=== PATIENT | female | born 1990 | race Caucasian/White ===

== ENCOUNTER 2020-10-10 16:38 | Emergency (ER) | payer OTHER, SELFPAY ==
[2020-10-10] VITALS (7 sets, daily range): BP systolic 158–175; BP diastolic 72–114; PULSE 63–97; RESP 14–20; TEMP 36.7–37.2; O2SAT 99–100
--- NOTE | 2020-10-10 17:01 | ECG_ITS ---
Measurements Intervals Concrete Rate: 64 P: 31 SD: 156 QRS: -1 QRSD: 77 T: 4 QT: 400 QTc: 414 Interpretive Statements SINUS RHYTHM BORDERLINE T WAVE ABNORMALITY- INFERIOR LEADS BORDERLINE ECG Electronically Signed On 10-11-2020 8:01:00 CDT by Kyrie Denny D.O.
[2020-10-10 18:01] LABS: Basophils Percent Auto 0.3 % (0.2-1.2); Eosinophils Absolute Auto 0.2 K/mm3 (0-0.3); Eosinophils Percent Auto 2.4 % (0-4.4); Hematocrit 34.9 % (37.0-47.0); Hemoglobin 11.7 g/dL (12.0-15.0); Immature Granulocyte Absolute 0.02 K/mm3 (0.00-0.031); Immature Granulocyte Percent A 0.3 % (0-0.5); Lymphocytes Absolute Auto 2.12 K/mm3 (0.9-3.2); Lymphocytes Percent Auto 27.2 % (18.3-44.2); Mean Corpuscular HGB Conc 33.5 g/dl (32-36); Mean Corpuscular Hemoglobin 29.4 pg (26-34); Mean Corpuscular Volume 87.7 fl (80-100); Monocytes Absolute Auto 0.5 K/mm3 (0.1-0.6); Neutrophils Percent Auto 63.8 % (45.5-73.1); Platelet Count Result 303 k/mm3 (150-375); Red Blood Count 3.98 M/mm3 (4.2-5.4); Red Cell Distribution Width 13.3 % (11.5-14.5); White Blood Count 7.8 K/mm3 (4.5-10.0)
[2020-10-10 18:10] LABS: Anion Gap 6 mmol/L (8-16); Blood Urea Nitrogen 14 mg/dL (7-17); Calcium 9.1 mg/dL (8.4-10.2); Carbon Dioxide 27 mmol/L (22-30); Chloride 104 mmol/L (98-107); Estimated CRCL calculation 82 ml/min; Estimated Glomerular Filt Rate > 60; Glucose 94 mg/dL (65-105); Potassium 3.8 mmol/L (3.4-5.0); Sodium 137 mmol/L (137-145)
[2020-10-10 19:51] LABS: Add Urine Microscopic? NO; Appearance Urine Clear (Clear); Bilirubin Urine Negative (Negative); Blood Urine Negative (Negative); Color Urine Straw (Yellow); Glucose Urine UA Negative (Negative); Ketones Urine Negative (Negative); Leukocyte Esterase Ur Negative LEU/UL (Negative); Nitrate Urine Negative (Negative); Protein Urine Negative (Negative); Specific Grav Ur 1.006 (1.001-1.035); Urobilinogen Urine Negative mg/dL (<2.0)
[2020-10-10] MEDS: KETOROLAC 30 MG/ML VIAL (*BKC) IV PUSH (19:52)
--- NOTE | 2020-10-10 20:32 | ED.HA ---
HPI - Headache General Chief Complaint: Headache Stated Complaint: htn Time Seen by Provider: 10/10/20 19:19 History of Present Illness HPI Narrative: Patient is a 30-year-old female who presents ER with headache and hypertension. 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 Because of her headache it was recommended she come to the ER to be evaluated. Patient does have history of hypertension and she takes 25 mg lisinopril. Headache is throbbing and frontal. No radiation. No change in vision or hearing. She denies nausea/vomiting/numbness/tingling. No trauma. She has history of headaches and this feels similar not particularly worrisome until her blood pressures were elevated. Related Data Allergies Allergy/AdvReac Type Severity Reaction Status Date / Time No Known Allergies Allergy Unverified 10/10/20 19:23 Review of Systems Review of Systems: All systems reviewed & are unremarkable except as noted in HPI and below Constitutional: Constitutional: Denies chills, Denies fever(s) and Denies weakness ENT: Denies nasal congestion and Denies sore throat Cardiovascular: Cardiovascular: Denies chest pain, Denies rapid heart rate and Denies radiating jaw, neck or arm pain Respiratory: Respiratory: Denies cough, Denies dyspnea and Denies wheezing Neurologic: Denies confusion, Reports headache(s), Denies focal weakness and Denies numbness PMFSH Past Medical History Medical History (Updated 10/10/20 @ 20:35 by Enzo Warner MD) Hypertension Surgical History Surgical History (Updated 10/10/20 @ 20:33 by Enzo Warner MD) No pertinent past surgical history Social History Social History (Updated 10/10/20 @ 20:33 by Enzo Warner MD) Smoking status: Never smoker Exam Narrative: Exam Narrative: GENERAL: Well-appearing, well-nourished, and in no acute distress. HEAD: Normocephalic, atraumatic. EYES: PERRL and EOMI. CHEST: Clear to auscultation. No respiratory distress. HEART: Regular rate and rhythm. Normal peripheral pulses. EXTREMITIES: Normal range of motion. No edema. NEURO: No focal deficits. Alert and oriented x3. PSYCH: Normal mood and affect. Course Course Emergency Course: Headache resolved with Toradol. Blood pressure normalized on its own. Follow-up with PCP as needed. Vital Signs Vital signs: Vital Signs Temperature 98.9 F 10/10/20 16:56 Pulse Rate 97 10/10/20 16:56 Respiratory Rate 20 10/10/20 16:56 Blood Pressure 175/114 H 10/10/20 16:56 Pulse Oximetry 100 10/10/20 16:56 Temperature 98.0 F 10/10/20 19:20 Pulse Rate 63 10/10/20 19:54 Respiratory Rate 14 10/10/20 19:54 Blood Pressure 164/86 H 10/10/20 19:21 Pulse Oximetry 100 10/10/20 19:21 MDM - Headache Lab Data Result diagrams: 10/10/20 17:05 10/10/20 17:05 Labs: Lab Results 10/10/20 10/10/20 10/10/20 Range/Units 17:05 17:05 19:39 WBC 7.8 (4.5-10.0) K/mm3 RBC 3.98 L (4.2-5.4) M/mm3 Hgb 11.7 L (12.0-15.0) g/dL Hct 34.9 L (37.0-47.0) % MCV 87.7 (80-100) fl MCH 29.4 (26-34) pg MCHC 33.5 (32-36) g/dl RDW 13.3 (11.5-14.5) % Plt Count 303 (150-375) k/mm3 MPV 9.0 (7.4-10.4) fl Immature Gran % (Auto) 0.3 (0-0.5) % Neut % (Auto) 63.8 (45.5-73.1) % Lymph % (Auto) 27.2 (18.3-44.2) % [place] % (Auto) 6.0 (2.6-8.5) % Eos % (Auto) 2.4 (0-4.4) % Baso % (Auto) 0.3 (0.2-1.2) % Lymph # (Auto) 2.12 (0.9-3.2) K/mm3 [place] # (Auto) 0.5 (0.1-0.6) K/mm3 Eos # (Auto) 0.2 (0-0.3) K/mm3 Baso # (Auto) 0.0 (0.0-0.1) K/mm3 Abs Immat Gran (auto) 0.02 (0.00-0.031) K/mm3 Absolute Neuts (auto) 5.0 (1.3-6.7) K/mm3 Absolute Nucleated RBC 0.0 (0.0-0.012) K/mm3 Nucleated RBC % 0.0 (0.0-0.2) % Sodium 137 (137-145) mmol/L Potassium 3.8 (3.4-5.0) mmol/L Chloride 104 (98-10
[2020-10-10] MEDS: amLODIPine BESYLATE 5 MG TABLET 10 MG PO (20:37)
== END 2020-10-10 20:47 | disposition home or self-care (01) ==
PROVIDERS: Emergency Medicine; Emergency Provider Emergency Medicine; PCP Nurse Practitioner Psychiatric/Mental Health
DX: R51.9 Headache, unspecified (principal); I10 Essential (primary) hypertension; R94.31 Abnormal electrocardiogram [ECG] [EKG]
CPT/HCPCS: 36415; 80048; 81003; 81025; 85025; 93005; 96374; 99284; A9270; J1885

== ENCOUNTER 2023-06-20 08:59 | Outpatient (RCR) | payer BC, MEDICAID, SELFPAY ==
[2023-06-20 10:40] LABS: Hematocrit 33.7 % (37.0-47.0); Hemoglobin 10.9 g/dL (12.0-15.0)
[2023-06-20 10:44] LABS: Glucose 1 Hour PP 50gm Dose 95 mg/dL
[2023-06-20 11:25] LABS: HIV 1/2 Ab P24 Ag Result Negative (Negative)
[2023-06-20] MEDS: RHO(D) IMMUNE GLOBULIN 300 MCG/2 ML SYRINGE IM (16:04)
== END 2023-09-18 23:59 | disposition home or self-care (01) ==
LOC: ANHLAB 08:59
PROVIDERS: Visit Provider Obstetrics & Gynecology
DX: Z11.4 Encounter for screening for human immunodeficiency virus [HIV] (principal); Z29.13 Encounter for prophylactic Rho(D) immune globulin; O36.0130 Maternal care for anti-D [Rh] antibodies, third trimester, not applicable or unspecified; Z3A.00 Weeks of gestation of pregnancy not specified
CPT/HCPCS: 36415; 82947; 85014; 85018; 85461; 86703; 86850; 86900; 86901; 90384; G0432; J2790

== ENCOUNTER 2023-07-11 12:25 | Outpatient (CLI) | payer BC, MEDICAID, SELFPAY ==
[2023-07-11 12:46] VITALS: BP 137/83; PULSE 87
[2023-07-11 13:01] VITALS: BP 143/91; PULSE 78
[2023-07-11 13:16] VITALS: BP 144/89; PULSE 78
[2023-07-11 13:28] LABS: Basophils Percent Auto 0.3 % (0.2-1.2); Eosinophils Absolute Auto 0.2 K/mm3 (0-0.3); Eosinophils Percent Auto 1.7 % (0-4.4); Hematocrit 34.1 % (37.0-47.0); Immature Granulocyte Absolute 0.11 K/mm3 (0.00-0.031); Lymphocytes Absolute Auto 1.46 K/mm3 (0.9-3.2); Lymphocytes Percent Auto 13.1 % (18.3-44.2); Mean Corpuscular HGB Conc 32.3 g/dl (32-36); Mean Corpuscular Hemoglobin 29.4 pg (26-34); Mean Corpuscular Volume 91.2 fl (80-100); Mean Platelet Volume 9.3 fl (7.4-10.4); Monocytes Absolute Auto 0.7 K/mm3 (0.1-0.6); Monocytes Percent Auto 6.2 % (2.6-8.5); Neutrophils Absolute Auto 8.7 K/mm3 (1.3-6.7); Neutrophils Percent Auto 77.7 % (45.5-73.1); Platelet Count Result 265 k/mm3 (150-375); Red Blood Count 3.74 M/mm3 (4.2-5.4); White Blood Count 11.2 K/mm3 (4.5-10.0)
[2023-07-11 13:31] VITALS: BP 126/79; PULSE 80
[2023-07-11 13:43] LABS: Alanine Aminotransferase 10 U/L (6-35); Albumin Level 3.5 g/dL (3.5-5.1); Alkaline Phosphatase 101 U/L (38-126); Anion Gap 9 mmol/L (8-16); Aspartate Amino Transferase 17 U/L (14-36); Bilirubin,Total 0.2 mg/dL (0.2-1.3); Blood Urea Nitrogen 5 mg/dL (7-17); Calcium 9.1 mg/dL (8.4-10.2); Carbon Dioxide 23 mmol/L (22-30); Chloride 105 mmol/L (98-107); Estimated Glomerular Filt Rate > 60; Glucose 87 mg/dL (65-110); Potassium 3.5 mmol/L (3.4-5.0); Sodium 137 mmol/L (137-145); Uric Acid 3.3 mg/dL (2.5-7.5)
[2023-07-11 13:46] VITALS: BP 124/80; PULSE 74
[2023-07-11 14:27] LABS: Creatinine Urine 175.3 mg/dL; Total Protein Urine Random 13 mg/dL; Ur Ttl Prot Creatinine Ratio 0.07 mg/mg (0-0.20)
--- NOTE | 2023-07-11 14:42 | PC.NURSE ---
Dr Vargas notified of lab results, BP and reactive tracing. OK to dc home.
[2023-07-11 14:45] VITALS: BP 137/83; PULSE 87
[2023-07-12 15:51] LABS: Appearance Urine Cloudy (Clear); Bacteria Urine 2+ /hpf; Bilirubin Urine Negative (Negative); Blood Urine Negative (Negative); Calcium Oxalate Crystals Urine Present /hpf; Color Urine Yellow (Yellow); Glucose Urine UA Negative (Negative); Ketones Urine Negative (Negative); Leukocyte Esterase Ur Trace LEU/UL (NEGATIVE); Nitrate Urine Negative (Negative); Non Pathogenic Casts 0-2; Protein Urine Negative (Negative); Specific Grav Ur 1.021 (1.001-1.035); Squamous Epithelial Cell Urine Many /hpf (Few); pH Urine 5.5 (5.0-9.0)
[2023-07-12 15:53] LABS: Add Urine Microscopic? YES
== END 2023-07-11 14:45 | disposition home or self-care (01) ==
LOC: ANHOBOP 12:29 → ANHLDR 12:30
PROVIDERS: PCP Nurse Practitioner Family; Visit Provider Obstetrics & Gynecology
DX: O13.9 Gestational [pregnancy-induced] hypertension without significant proteinuria, unspecified trimester (principal); Z3A.00 Weeks of gestation of pregnancy not specified
CPT/HCPCS: 36415; 59025; 80053; 81001; 82570; 84156; 84550; 85025; 87086; 99199

== ENCOUNTER 2023-08-28 05:07 | Outpatient (CLI) | payer BC, MEDICAID, SELFPAY ==
[2023-08-28] VITALS (19 sets, daily range): BP systolic 138–161; BP diastolic 98–107; PULSE 69–94; O2SAT 99–100; BMI 34.2
[2023-08-28 06:00] LABS: Basophils Percent Auto 0.4 % (0.2-1.2); Eosinophils Absolute Auto 0.1 K/mm3 (0-0.3); Eosinophils Percent Auto 1.3 % (0-4.4); Hematocrit 34.3 % (37.0-47.0); Hemoglobin 11.2 g/dL (12.0-15.0); Immature Granulocyte Absolute 0.06 K/mm3 (0.00-0.031); Immature Granulocyte Percent A 0.6 % (0-0.5); Lymphocytes Absolute Auto 1.86 K/mm3 (0.9-3.2); Lymphocytes Percent Auto 17.6 % (18.3-44.2); Mean Corpuscular HGB Conc 32.7 g/dl (32-36); Mean Corpuscular Hemoglobin 28.3 pg (26-34); Mean Corpuscular Volume 86.6 fl (80-100); Mean Platelet Volume 9.8 fl (7.4-10.4); Monocytes Absolute Auto 0.6 K/mm3 (0.1-0.6); Monocytes Percent Auto 5.6 % (2.6-8.5); Neutrophils Absolute Auto 7.9 K/mm3 (1.3-6.7); Neutrophils Percent Auto 74.5 % (45.5-73.1); Platelet Count Result 302 k/mm3 (150-375); Red Blood Count 3.96 M/mm3 (4.2-5.4); Red Cell Distribution Width 13.2 % (11.5-14.5); White Blood Count 10.6 K/mm3 (4.5-10.0)
--- NOTE | 2023-08-28 06:08 | PC.NURSE ---
Report given to Angelica Huffman RN.
[2023-08-28 06:09] LABS: Alanine Aminotransferase 10 U/L (6-35); Albumin Level 3.5 g/dL (3.5-5.1); Alkaline Phosphatase 139 U/L (38-126); Anion Gap 3 mmol/L (8-16); Appearance Urine Cloudy (Clear); Aspartate Amino Transferase 20 U/L (14-36); Bacteria Urine 4+ /hpf; Bilirubin Urine Negative (Negative); Bilirubin,Total 0.3 mg/dL (0.2-1.3); Blood Urea Nitrogen 6 mg/dL (7-17); Blood Urine Negative (Negative); Carbon Dioxide 23 mmol/L (22-30); Chloride 110 mmol/L (98-107); Color Urine Yellow (Yellow); Estimated CRCL calculation 104 ml/min; Estimated Glomerular Filt Rate > 60; Glucose 80 mg/dL (65-110); Glucose Urine UA Negative (Negative); Ketones Urine Negative (Negative); Leukocyte Esterase Ur 1+ LEU/UL (Negative); Need Manual Microscopic Reviewed; Nitrate Urine Negative (Negative); Potassium 3.7 mmol/L (3.4-5.0); Protein Urine Trace mg/dL (Negative); RBC Urine 0-2 /hpf (0-2); Sodium 136 mmol/L (137-145); Specific Grav Ur 1.019 (1.001-1.035); Squamous Epithelial Cell Urine Many /hpf (Few); Uric Acid 4.8 mg/dL (2.5-7.5); Urobilinogen Urine 0.2 mg/dL (<2.0); WBC Urine 21-50 /hpf; pH Urine 5.5 (5.0-9.0)
[2023-08-28 06:15] LABS: Add Urine Microscopic? YES
[2023-08-28 06:21] LABS: Creatinine Urine 197.4 mg/dL; Total Protein Urine Random 12 mg/dL; Ur Ttl Prot Creatinine Ratio 0.06 mg/mg (0-0.20)
--- NOTE | 2023-08-28 06:37 | PC.NURSE ---
Dr. Mckee updated with pt blood pressures and lab results. Dr. Mckee consulting Dr. Vargas due to the pt being his pt.
--- NOTE | 2023-08-28 07:08 | PC.NURSE ---
Dr. Vargas at the bedside discussing POC with the pt. MD would like to move up pt scheduled C/S. Pt declined C/S today. Pt okay with proceeding on Saturday with c/s. MD discussed signs to report. Discharge order received.
--- NOTE | 2023-08-28 07:29 | PM.IMHP ---
H&P: [facility] History of Present Illness Date/Time: 08/28/23 07:29 Chief Complaint: Elevated blood pressure Narrative: 32-year-old female with elevated blood pressures at home. She is a 37 week gestation mother with a history of preeclampsia she denies any headache, blurry vision, epigastric pain. She denies any sudden worsening of her swelling. Her face looks different today. She denies any contractions, loss of fluid, vaginal bleeding. She reports good movement. Review of Systems Review of Systems: All systems reviewed & are unremarkable except as noted in HPI and below Constitutional: Constitutional: Denies chills, Denies fatigue, Denies fever(s) and Denies weakness Eyes: Eyes: Denies blurry vision, Denies change in vision, Denies loss of peripheral vision, Denies loss of vision, Denies other visual disturbances and Denies eye pain ENT: Denies vertigo, Denies dizziness, Denies hearing loss, Denies mouth pain, Denies nasal obstruction, Denies neck mass and Denies neck pain Cardiovascular: Cardiovascular: Denies chest pain, Denies diaphoresis, Denies syncope, Denies leg edema and Denies dyspnea Respiratory: Respiratory: Denies chest congestion, Denies cough, Denies hemoptysis, Denies dyspnea and Denies wheezing Gastrointestinal: Gastrointestinal: Denies abdominal pain, Denies constipation, Denies diarrhea, Denies nausea and Denies vomiting Genitourinary: Genitourinary: Denies hematuria, Denies change in libido, Denies nocturia, Denies genital lesions, Denies flank pain and Denies urinary urgency Musculoskeletal: Musculoskeletal: Denies abnormal gait, Denies back pain, Denies myalgias, Denies arthralgias, Denies joint swelling, Denies muscle weakness and Denies neck pain Integumentary/Breasts: Skin/Breast: Denies swelling, Denies breast pain, Denies breast mass, Denies dry skin, Denies nipple discharge, Denies unusual bruising and Denies jaundice Neurologic: Denies Neuro-related abnormal movements, Denies Abnormal speech present, Denies abnormal gait, Denies behavioral changes, Denies confusion, Denies vertigo, Denies dizziness, Denies syncope, Denies loss of vision, Denies memory loss, Denies convulsions and Denies weakness Psychiatric: Psychiatric: Denies abnormal sleep pattern, Denies behavioral changes, Denies change in libido, Denies confusion, Denies depression, Denies anhedonia and Denies memory loss Endocrine: Endocrine: Reports no additional endocrine complaints, Denies change in libido and Denies fatigue Hematologic/Lymphatic: Hematologic/Lymphatic: Reports no additional hematologic/lymphatic complaints Allergic/Immunologic: Allergic/Immunologic: Reports no additional allergic/immunologic complaints and Denies wheezing PMFSH Past Medical History Medical History (Updated 08/28/23 @ 07:31 by Mj Vargas MD) Hypertension Surgical History Surgical History (Updated 10/10/20 @ 20:33 by Enzo Warner MD) No pertinent past surgical history Social History Social History (Updated 10/10/20 @ 20:33 by Enzo Warner MD) Smoking status: Never smoker Meds Home Medications and Allergies Allergies Allergy/AdvReac Type Severity Reaction Status Date / Time No Known Allergies Allergy Verified 08/28/23 06:05 Vital Signs Vital Signs - 24 hr 08/28/23 05:26 08/28/23 05:37 08/28/23 05:39 Pulse Rate 87 80 Blood Pressure 161/107 H Blood Pressure [Left Arm] 161/107 H Pulse Oximetry 100 08/28/23 05:42 08/28/23 05:56 08/28/23 06:00 Pulse Rate 85 84 Blood Pressure 147/107 H 148/103 H Blood Pressure [Left Arm] Pulse Oximetry 100 08/28/23 06:15 08/28/23 06:29 08/28/23 06:30 Pulse Rate 80 72 Blood Pressure 147/98 H 152/98 H Blood Pressure [Left Arm] Pulse Oximetry 100 08/28/23 06:34 08/28/23 06:39 08/28/23 06:44 Pulse Rate Blood Pressure Blood Pressure [Left Arm] Pulse Oximetry 100 100 100 08/28/23 06:45 08/28/23 06:49 08/28/23 06:50 Pul
== END 2023-08-28 07:27 | disposition home or self-care (01) ==
LOC: ANHOBOP 05:14 → ANHOBPP 05:22
PROVIDERS: PCP Nurse Practitioner Family; Visit Provider Obstetrics & Gynecology
DX: O13.9 Gestational [pregnancy-induced] hypertension without significant proteinuria, unspecified trimester (principal); Z3A.00 Weeks of gestation of pregnancy not specified
CPT/HCPCS: 36415; 80053; 81001; 82570; 84156; 84550; 85025; 87086; 99199

== ENCOUNTER 2023-08-30 05:29 | Inpatient (IN) | payer BC, MEDICAID, SELFPAY ==
[2023-08-30] VITALS (70 sets, daily range): BP systolic 100–188; BP diastolic 38–129; PULSE 58–224; RESP 13–18; TEMP 36.2–37.2; O2SAT 97–100; BMI 33.7
[2023-08-30 06:11] LABS: Basophils Percent Auto 0.2 % (0.2-1.2); Eosinophils Absolute Auto 0.1 K/mm3 (0-0.3); Eosinophils Percent Auto 1.3 % (0-4.4); Hematocrit 33.7 % (37.0-47.0); Hemoglobin 11.1 g/dL (12.0-15.0); Immature Granulocyte Absolute 0.07 K/mm3 (0.00-0.031); Immature Granulocyte Percent A 0.7 % (0-0.5); Lymphocytes Absolute Auto 1.77 K/mm3 (0.9-3.2); Lymphocytes Percent Auto 17.1 % (18.3-44.2); Mean Corpuscular HGB Conc 32.9 g/dl (32-36); Mean Corpuscular Hemoglobin 28.2 pg (26-34); Mean Corpuscular Volume 85.8 fl (80-100); Mean Platelet Volume 9.6 fl (7.4-10.4); Monocytes Absolute Auto 0.6 K/mm3 (0.1-0.6); Monocytes Percent Auto 5.9 % (2.6-8.5); Neutrophils Absolute Auto 7.8 K/mm3 (1.3-6.7); Neutrophils Percent Auto 74.8 % (45.5-73.1); Platelet Count Result 295 k/mm3 (150-375); Red Blood Count 3.93 M/mm3 (4.2-5.4); Red Cell Distribution Width 13.4 % (11.5-14.5); White Blood Count 10.4 K/mm3 (4.5-10.0)
[2023-08-30] MEDS: LACTATED RINGERS 1,000 ML 999 ML IV CONT (06:16)
[2023-08-30] MEDS: LABETALOL HCL INJ 100 MG/20 ML VIAL 20 MG IV PUSH (06:25)
--- NOTE | 2023-08-30 06:34 | LDADM ---
This patient, Sena Deleon, was admitted to Labor/Delivery/Recovery 120 on 08/30/23 at 05:29. Plans for c section, pain management and were discussed with patient. Patient/family oriented to hospital policies and general routines including ID bracelet, bed and alarms, visiting hours, pain management, procedures, bathroom and other care routines, personal items, smoking policy, room service/diet and guest tray routines, infant security routines, and visiting hours. Patient/Family are encouraged to report perceived risks to care and to ask questions if they do not understand what they are told or what they should do. See OBIX for further documentation.
[2023-08-30] MEDS: MAGNESIUM SULF 4 GM/WATER100ML 4 GM/100 ML BAG IVPB (06:40)
[2023-08-30 06:55] LABS: Alanine Aminotransferase 10 U/L (6-35); Albumin Level 3.2 g/dL (3.5-5.1); Alkaline Phosphatase 131 U/L (38-126); Anion Gap 4 mmol/L (8-16); Aspartate Amino Transferase 19 U/L (14-36); Bilirubin,Total 0.3 mg/dL (0.2-1.3); Blood Urea Nitrogen 5 mg/dL (7-17); Calcium 8.6 mg/dL (8.4-10.2); Carbon Dioxide 22 mmol/L (22-30); Chloride 107 mmol/L (98-107); Estimated CRCL calculation 119 ml/min; Estimated Glomerular Filt Rate > 60; Glucose 78 mg/dL (65-110); Potassium 3.2 mmol/L (3.4-5.0); Sodium 133 mmol/L (137-145); Uric Acid 4.3 mg/dL (2.5-7.5)
[2023-08-30] MEDS: MAGNESIUM SULF 20GM/WATER500ML 500 ML 50 MG IV CONT ×2 (07:14→17:55)
--- NOTE | 2023-08-30 07:14 | PM.IMHP ---
H&P: HPI History of Present Illness Date/Time: 08/30/23 07:14 Chief Complaint: Term Narrative: 32-year-old female multiparous term with preeclampsia and a previous who desires female sterilization. We have agreed to proceed with repeat delivery and bilateral salpingectomy. She understands the procedure. Has been explained to her in detail. She understands the risk. She understands that injuries may occur that result in hospitalization, more surgery, and severe illness. She understands risk of hemorrhage infection. She denies any nausea, vomiting, fever, chills. She denies any chest pain or shortness of breath Review of Systems Review of Systems: All systems reviewed & are unremarkable except as noted in HPI and below Constitutional: Constitutional: Denies chills, Denies fatigue, Denies fever(s) and Denies weakness Eyes: Eyes: Denies blurry vision, Denies change in vision, Denies loss of peripheral vision, Denies loss of vision, Denies other visual disturbances and Denies eye pain ENT: Denies vertigo, Denies dizziness, Denies hearing loss, Denies mouth pain, Denies nasal obstruction, Denies neck mass and Denies neck pain Cardiovascular: Cardiovascular: Denies chest pain, Denies diaphoresis, Denies syncope, Denies leg edema and Denies dyspnea Respiratory: Respiratory: Denies chest congestion, Denies cough, Denies hemoptysis, Denies dyspnea and Denies wheezing Gastrointestinal: Gastrointestinal: Denies abdominal pain, Denies constipation, Denies diarrhea, Denies nausea and Denies vomiting Genitourinary: Genitourinary: Denies hematuria, Denies change in libido, Denies nocturia, Denies genital lesions, Denies flank pain and Denies urinary urgency Musculoskeletal: Musculoskeletal: Denies abnormal gait, Denies back pain, Denies myalgias, Denies arthralgias, Denies joint swelling, Denies muscle weakness and Denies neck pain Integumentary/Breasts: Skin/Breast: Denies swelling, Denies breast pain, Denies breast mass, Denies dry skin, Denies nipple discharge, Denies unusual bruising and Denies jaundice Neurologic: Denies Neuro-related abnormal movements, Denies Abnormal speech present, Denies abnormal gait, Denies behavioral changes, Denies confusion, Denies vertigo, Denies dizziness, Denies syncope, Denies loss of vision, Denies memory loss, Denies convulsions and Denies weakness Psychiatric: Psychiatric: Denies abnormal sleep pattern, Denies behavioral changes, Denies change in libido, Denies confusion, Denies depression, Denies anhedonia and Denies memory loss Endocrine: Endocrine: Reports no additional endocrine complaints, Denies change in libido and Denies fatigue Hematologic/Lymphatic: Hematologic/Lymphatic: Reports no additional hematologic/lymphatic complaints Allergic/Immunologic: Allergic/Immunologic: Reports no additional allergic/immunologic complaints and Denies wheezing PMFSH Past Medical History Medical History (Updated 08/30/23 @ 07:23 by Mj Vargas MD) Hypertension Surgical History Surgical History (Updated 08/30/23 @ 07:23 by Mj Vargas MD) No pertinent past surgical history Family History Family History (Updated 08/30/23 @ 06:39 by Ceci Bowman RN) Mother Cerebrovascular accident Hypertension Grandparent Congestive heart failure Grandparent Diabetes mellitus Grandparent Diabetes mellitus Father Brain bleed Social History Social History (Updated 10/10/20 @ 20:33 by Enzo Warner MD) Smoking status: Never smoker Second hand tobacco smoke exposure: No Substance use: never Do You Feel Safe in your Home?: Yes Lack of Transportation: No Lack of Food: Never True Current Housing: I Have Housing Concerned About Future Housing: No Difficulty Paying Gas/Electric Bills: No Difficulty Paying for Meds: No Currently Unemployed: No Education: Bachelor's Degree Difficulty w/ Childcare or Family Care: No Spiritual care concerns:
[2023-08-30] MEDS: ONDANSETRON INJ 4 MG/2 ML VIAL IV PUSH (07:15)
[2023-08-30] MEDS: FAMOTIDINE 20 MG/2 ML VIAL IV PUSH (07:16)
--- NOTE | 2023-08-30 07:23 | WPDANESEPP ---
Anes - Eval Pre Procedure Procedure: Operation Date: 08/30/23 07:30 Proposed Procedures p Repeat Section with Bilateral Salpingectomy - RMaribel Vargas MD Date/Time: 08/30/23 07:23 Pre Op Diagnosis: prior csection, sterilization Patient Data Age: 32 Gender: F Height: 1.6 m Weight: 86.5 kg Last Vital Signs Pulse 87 08/30/23 07:11 Resp 18 08/30/23 06:40 BP 149/101 H 08/30/23 07:11 O2 Del Method Room Air 08/30/23 06:22 Allergies Allergy/AdvReac Type Severity Reaction Status Date / Time No Known Allergies Allergy Verified 08/28/23 06:05 Home Medications Medication Instructions Recorded Confirmed Type aspirin 81 mg capsule 81 mg PO DAILY 08/30/23 08/30/23 History ferrous sulfate 27 mg iron tablet 27 mg PO DAILY 08/30/23 08/30/23 History prenat.vits,nikhil,zvp-tigs-sxlbp 1 tablet PO DAILY 08/30/23 08/30/23 History Laboratory Tests 08/30/23 08/30/23 08/30/23 05:58 06:37 06:37 WBC 10.4 H K/mm3 (4.5-10.0) RBC 3.93 L M/mm3 (4.2-5.4) Hgb 11.1 L g/dL (12.0-15.0) Hct 33.7 L % (37.0-47.0) MCV 85.8 fl (80-100) MCH 28.2 pg (26-34) MCHC 32.9 g/dl (32-36) RDW 13.4 % (11.5-14.5) Plt Count 295 k/mm3 (150-375) MPV 9.6 fl (7.4-10.4) Immature Gran % (Auto) 0.7 H % (0-0.5) Neut % (Auto) 74.8 H % (45.5-73.1) Lymph % (Auto) 17.1 L % (18.3-44.2) Long % (Auto) 5.9 % (2.6-8.5) Eos % (Auto) 1.3 % (0-4.4) Baso % (Auto) 0.2 % (0.2-1.2) Lymph # (Auto) 1.77 K/mm3 (0.9-3.2) Long # (Auto) 0.6 K/mm3 (0.1-0.6) Eos # (Auto) 0.1 K/mm3 (0-0.3) Baso # (Auto) 0.0 K/mm3 (0.0-0.1) Abs Immat Gran (auto) 0.07 H K/mm3 (0.00-0.031) Absolute Neuts (auto) 7.8 H K/mm3 (1.3-6.7) Absolute Nucleated RBC 0.0 K/mm3 (0.0-0.012) Nucleated RBC % 0.0 % (0.0-0.2) Sodium 133 L mmol/L (137-145) Potassium 3.2 L mmol/L (3.4-5.0) Chloride 107 mmol/L (98-107) Carbon Dioxide 22 mmol/L (22-30) Anion Gap 4 L mmol/L (8-16) BUN 5 L mg/dL (7-17) Creatinine 0.60 L mg/dL (0.7-1.0) Estim Creat Clear Calc 119 ml/min Estimated GFR > 60 (59 - ) Glucose 78 mg/dL (65-110) Uric Acid 4.3 mg/dL Cancelled (2.5-7.5) Calcium 8.6 mg/dL (8.4-10.2) Total Bilirubin 0.3 mg/dL (0.2-1.3) AST 19 U/L (14-36) ALT 10 U/L (6-35) Alkaline Phosphatase 131 H U/L (38-126) Total Protein 6.0 L g/dL (6.3-8.2) Albumin 3.2 L g/dL (3.5-5.1) RPR Pending Blood Type O Negative Antibody Screen Positive Antibody Identification Pending Antigen Identification Pending CHONG, IgG Interpret Pending CHONG, Poly Interpret Pending CHONG, Complement Interp Pending Patient hx anesthesia problems: none Family hx anesthesia problems: none Results Review: All pre-operative results and documents have been reviewed as part of the pre-operative evaluation. [facility] Past Medical History Medical History Hypertension Surgical History Surgical History No pertinent past surgical history Family History Family History Mother Cerebrovascular accident Hypertension Grandparent Congestive heart failure Grandparent Diabetes mellitus Grandparent Diabetes mellitus Father Brain bleed Social History Social History Smoking status: Never smoker Second hand tobacco smoke exposure:
--- NOTE | 2023-08-30 07:31 | P.PNAN_ITS ---
Anes - Eval Final PreProcedure Day of Procedure 08/30/23 07:31 Patient weight: obese Heart: regular rate and rhythm Lungs: clear to auscultation Airway: Mallampati scale class II Neurological: alert and oriented Last oral intake: >/= 8 hours ASA classification: III Emergent: no Anesthetic plan: proceed Anesthesia type and monitoring: regional spinal and standard monitoring Results Review: All pre-operative results and documents have been reviewed as part of the pre- operative evaluation. Informed Consent: The patient's anesthetic plan and its attendant risks and benefits were discussed with the patient/family/POA. Questions were solicited and answers provided to the satisfaction of the patient/family/POA.
[2023-08-30] MEDS: ceFAZolin 2 GM/D5W 50 ML 2 GM/50 ML BAG IVPB (07:40)
--- NOTE | 2023-08-30 08:36 | W.PM.OBCSD ---
OB - Delivery Note Procedure Delivery date: 08/30/23 Pre-op diagnosis: Preeclampsia w severe features and Previous Delivery Post-op Diagnosis: Same Procedure Performed: Repeat Surgeon: Mj Vargas MD Anesthesia type: Spinal Description of Procedure/Findings: The patient was taken the operating room.? She was prepped and draped in dorsal supine position with a leftward tilt.? This was done after spinal anesthetic was applied.? A low-transverse skin incision was made and carried down till of the fascia with the knife.? The fascial incision was made with the knife.? The fascial incision was extended laterally with Prado scissors.? The fascia was tented upward superiorly and inferiorly the rectus muscles were dissected off bluntly.? The rectus muscles were the midline.? The preperitoneal fat and peritoneum were dissected open bluntly at the superior aspect of the rectus muscles.? The peritoneal incision was extended superior and inferior with good position of bladder.? The uterine incision was made with a scalpel down to the level of the amniotic cavity.? The amniotic cavity was entered bluntly.? The was delivered.? The cord was clamped and cut and the infant was handed off to waiting pediatric staff.? Cord bloods were obtained.? The placenta was removed manually.? The uterus was exteriorized.? The uterus was cleared of all clots, debris and membranes.? The uterus was closed in 0 Vicryl running lock fashion.? imbricating layer of 0 Vicryl was placed also. Each fallopian tube was grasped and raised with a Seymour.? With from the underlying venous structures.? The mesosalpinx between the tube and the rest the adnexa was cauterized and transected with LigaSure cautery.? It was performed from the distal tube near the ovary in a stepwise fashion towards the cornua.? The tube at the cornua was cauterized transected with LigaSure cautery.? This was performed in a bilateral fashion. The uterus was returned to the abdomen.? The gutters were cleared of all clots and debris.? The fascia was closed with 0 Vicryl running fashion.? The subcutaneous tissue was irrigated pinpoint bleeders were cauterized.? The skin was closed with subcuticular absorbable rashid.? The skin incision line was covered with glue.? The patient tolerated the procedure well.? She has taken recovery room in stable condition.? Sponge lap and needle counts were correct x2.? [place] [facility] Weeks of gestation at delivery: 37
[2023-08-30] MEDS: OXYTOCIN 30 UNITS/NS 500 ML 30 UNITS/500 ML BAG 125 UNITS IV CONT (09:10)
[2023-08-30] MEDS: LORATADINE 10 MG TABLET PO (09:12)
--- NOTE | 2023-08-30 11:05 | OBPPTRN ---
Patient transferred to post room #292 via stretcher. Support person present. Oriented to unit, room, information board, rooming in, admission packet and security measures. Patient verbalizes understanding.
[2023-08-30] MEDS: ACETAMINOPHEN 325 MG TABLET 650 MG PO ×2 (11:26→17:27)
[2023-08-30] MEDS: SIMETHICONE 80 MG TAB.CHEW PO ×2 (11:27→17:27)
[2023-08-30] MEDS: KETOROLAC 15 MG/ML VIAL (*BKC) IV PUSH ×2 (11:28→17:27)
--- NOTE | 2023-08-30 14:05 | PC.NURSE ---
[id number] Introductions were made, then consulted with patient to assess needs related to . Mother led the conversation her desire to want to breastfeed this time, the?experience so far with having only one feeding downstairs on the right breast, and experience with her first delivery at another hospital with it leading to pump and feed. Right nipple has a purple pinch like negin on the center of the nipple. Infant assessment there is visualized a tight lower frenulum. Encouraged understanding of the benefits of skin to skin (demonstrating unwrapping infant and placing upright on her chest), stimulating with massage touch, changing positions to encourage wakefulness, how to watch for early feeding cues, responsive feeding, feeding on demand (aiming for 8-12 times in 24 hours, about every 2-3 hours), milk production, building/maintaining a milk supply, duration of feeding, signs of adequate intake/output and how to record on the feeding sheet. Mother works well with her with encouragement and education. Infant is sleepy and reluctant to breastfeed or demonstrate feeding cues at this time, however; infant is jittery so RN suggested hand expressing for breast milk. Mother consented to learning how to hand express and demonstrated learning. was spoon fed 1/2 tsp of colostrum. Discussed with parents that infant's are typically sleepy and reluctant > 2 hours and < than 6 hours after delivery and if infant is not latching by 12-24 hours consider pumping versus hand expressing protecting the milk supply with frequent removal of milk. was placed [id number] on mothers chest/breast and covered with a blanket with no jittery visualized. Safe sleep education was given to the parents. Encouraged [id number] to encourage stabilizing blood sugar, keeping warm, and reducing stress encouraging milk production. Reviewed comfort measures of healing with a warm, wet washcloth to rinse breast, then leave open to air-dry, good handwashing when or touching the breast/nipples to prevent infection. Mother voiced understanding of skin to skin, stimulating with massage touch, responsive feedings, hand expressed colostrum, talking to to encourage if it has been 2 -2.5 hours since the start of the last , to call if does not latch, or if there is discomfort with . Resources used for education were facilitated with the visual educational handouts/ tool/mom and baby guide. Inpatient/outpatient resources provided with feeding sheet, name written on the communication board, and the mom/baby guide. Parents voiced understanding of information, demonstrated learning and will call if there is a request for assistance. Reported to the Primary RN.
[2023-08-30 15:27] LABS: Rapid Plasma Reagin Non-Reactive (NonReactive)
[2023-08-30] MEDS: DEXTROSE 5%/0.45% SOD CHL 1,000 ML 125 ML IV CONT (15:41)
[2023-08-30] MEDS: DOCUSATE SODIUM 100 MG CAPSULE PO (17:26)
[2023-08-30] MEDS: HYDROcodone/acetaminophen (*CRX) 5-325 MG TABLET 1 TAB PO (20:20)
[2023-08-31] VITALS (7 sets, daily range): BP systolic 124–156; BP diastolic 77–89; PULSE 64–89; RESP 16–18; TEMP 36.4–36.9; O2SAT 97–100
[2023-08-31] MEDS: ACETAMINOPHEN 325 MG TABLET 650 MG PO ×4 (00:04→20:16)
[2023-08-31] MEDS: KETOROLAC 15 MG/ML VIAL (*BKC) IV PUSH ×2 (00:04→06:24)
[2023-08-31] MEDS: MAGNESIUM SULF 20GM/WATER500ML 500 ML 50 MG IV CONT (03:59)
[2023-08-31] MEDS: DEXTROSE 5%/0.45% SOD CHL 1,000 ML 125 ML IV CONT (04:00)
[2023-08-31 05:12] LABS: Basophils Percent Auto 0.2 % (0.2-1.2); Eosinophils Absolute Auto 0.1 K/mm3 (0-0.3); Eosinophils Percent Auto 0.5 % (0-4.4); Hematocrit 25.8 % (37.0-47.0); Hemoglobin 8.2 g/dL (12.0-15.0); Immature Granulocyte Absolute 0.04 K/mm3 (0.00-0.031); Immature Granulocyte Percent A 0.4 % (0-0.5); Lymphocytes Absolute Auto 1.27 K/mm3 (0.9-3.2); Lymphocytes Percent Auto 11.7 % (18.3-44.2); Mean Corpuscular HGB Conc 31.8 g/dl (32-36); Mean Corpuscular Hemoglobin 28.2 pg (26-34); Mean Corpuscular Volume 88.7 fl (80-100); Mean Platelet Volume 10.1 fl (7.4-10.4); Monocytes Absolute Auto 0.5 K/mm3 (0.1-0.6); Monocytes Percent Auto 4.4 % (2.6-8.5); Neutrophils Percent Auto 82.8 % (45.5-73.1); Platelet Count Result 234 k/mm3 (150-375); Red Blood Count 2.91 M/mm3 (4.2-5.4); Red Cell Distribution Width 13.4 % (11.5-14.5); White Blood Count 10.9 K/mm3 (4.5-10.0)
--- NOTE | 2023-08-31 08:02 | P.PNOB_ITS ---
OB - PN: Subj Subjective Date/time seen: 08/31/23 08:02 Patient comments: no complaints, pain well controlled, tolerating diet and flatus present OB - PN: Obj Data Labs 08/31/23 04:20 08/30/23 06:37 Labs: Laboratory Results - last 24 hr 08/30/23 08/31/23 05:58 04:20 WBC 10.9 H RBC 2.91 L Hgb 8.2 L Hct 25.8 L MCV 88.7 MCH 28.2 MCHC 31.8 L RDW 13.4 Plt Count 234 MPV 10.1 Immature Gran % (Auto) 0.4 Neut % (Auto) 82.8 H Lymph % (Auto) 11.7 L [place] % (Auto) 4.4 Eos % (Auto) 0.5 Baso % (Auto) 0.2 Lymph # (Auto) 1.27 [place] # (Auto) 0.5 Eos # (Auto) 0.1 Baso # (Auto) 0.0 Abs Immat Gran (auto) 0.04 H Absolute Neuts (auto) 9.0 H Absolute Nucleated RBC 0.0 Nucleated RBC % 0.0 RPR Non-reactive Blood Type O Negative Antibody Screen TNP Screen Negative Baby's Blood Type A pos Baby's CHONG Positive Doses of RhIg Required 1 OB - PN A/P Assessment and Plan (1) Preeclampsia, severe: Code(s): O14.10 - Severe pre-eclampsia, unspecified trimester Status: Acute Plan day: 1 Comments: Post Op LTCS - no problems, routine recovery, severe pree, to d/c mag and observe, stable now Time Spent With Patient Time: Total time spent is greater than 50% in coordination of care (as documented) at patient's floor/unit and/or counseling patient: Exam Const: General: cooperative, healthy appearing, comfortable and no acute distress Resp: Auscultation: no crackles, no rales, no rhonchi and no wheezes Cardio: Rhythm: regular rhythm Heart sounds: no click and no murmurs GI: Inspection: non-distended Auscultation: normal bowel sounds Extrem: General: normal to inspection, no pedal edema and no calf tenderness
--- NOTE | 2023-08-31 08:41 | WPDANLDPN2 ---
Anes-Prog Note L&D Date/Time: 08/31/23 08:41 Comfortable throughout: section Neuraxial method: spinal Epidural/Spinal procedure site: clean & non-tender Neuro status: Neuro function grossly intact.on Mg, catheter in, leg function intact. Cardiovascular status: normal Respiratory status: normal Airway patency: baseline Mental status: baseline Post-Op hydration status: normal Vital Signs: Last Vital Signs Temp 36.8 C 08/31/23 06:30 Pulse 78 08/31/23 06:30 Resp 18 08/31/23 06:30 BP 132/77 08/31/23 06:30 Pulse Ox 100 08/31/23 06:30 O2 Del Method Room Air 08/31/23 06:30 Pain score (VAS): 2 I/O: Intake & Output 08/30/23 08/31/23 08/31/23 23:59 07:59 15:59 Intake Total 240 2050 368 Output Total 1500 1300 Balance -1260 750 368 Post-procedural complaints: none Patient feedback: Patient satisfied with anesthetic care.
--- NOTE | 2023-08-31 08:42 | WPDANLDNPN2 ---
Anes-Prog Note L&D-Neuraxial Date/Time: 08/31/23 08:42 Neuraxial medications: intrathecal PF morphine Opiod-related complaints: none Patient feedback: Patient satisfied with post-operative pain management.
[2023-08-31] MEDS: SIMETHICONE 80 MG TAB.CHEW PO ×3 (08:50→20:15)
[2023-08-31] MEDS: MULTIVIT/MIN/PREN/FOL AC/IRON TABLET 1 TAB PO (08:51)
[2023-08-31] MEDS: DOCUSATE SODIUM 100 MG CAPSULE PO ×2 (08:51→15:43)
[2023-08-31] MEDS: POLYSACCHARIDE IRON COMPLEX 150 MG CAPSULE PO ×2 (08:51→15:43)
[2023-08-31] MEDS: RHO(D) IMMUNE GLOBULIN 300 MCG/2 ML SYRINGE IM (12:48)
[2023-08-31] MEDS: IBUPROFEN 600 MG TABLET PO ×2 (12:51→20:15)
[2023-08-31] MEDS: HYDROcodone/acetaminophen (*CRX) 10-325 MG TABLET 1 TAB PO ×2 (12:52→15:43)
[2023-08-31] MEDS: LIDOCAINE 5% PATCH 1 PATCH TRANSDERM (20:13)
[2023-08-31] MEDS: LABETALOL HCL 100 MG TABLET 200 MG PO (20:18)
[2023-09-01] VITALS (8 sets, daily range): BP systolic 116–149; BP diastolic 70–93; PULSE 60–97; RESP 16–18; TEMP 36.6–37.6; O2SAT 97–100
[2023-09-01] MEDS: ACETAMINOPHEN 325 MG TABLET 650 MG PO ×4 (02:10→22:27)
[2023-09-01] MEDS: IBUPROFEN 600 MG TABLET PO ×4 (02:11→22:27)
[2023-09-01] MEDS: MULTIVIT/MIN/PREN/FOL AC/IRON TABLET 1 TAB PO (08:51)
[2023-09-01] MEDS: DOCUSATE SODIUM 100 MG CAPSULE PO ×2 (08:51→16:16)
[2023-09-01] MEDS: POLYSACCHARIDE IRON COMPLEX 150 MG CAPSULE PO ×2 (08:51→16:16)
[2023-09-01] MEDS: SIMETHICONE 80 MG TAB.CHEW PO ×3 (08:51→22:27)
[2023-09-01] MEDS: LABETALOL HCL 100 MG TABLET 200 MG PO ×2 (08:52→21:24)
--- NOTE | 2023-09-01 09:49 | PM.OBPNVD ---
OB - PN: Subj Subjective Date/time seen: 09/01/23 09:49 Patient comments: no complaints, pain well controlled, incisional pain, tolerating diet and flatus present OB - PN: Obj Data Labs 08/31/23 04:20 08/30/23 06:37 Labs: Laboratory Results - last 24 hr 08/31/23 04:20 Blood Type O Negative Antibody Screen TNP Screen Negative Baby's Blood Type A pos Baby's CHONG Positive Doses of RhIg Required 1 OB - PN A/P Plan day: 2 Plan: routine care Comments: POD#2 LTCS - no problems, improved pree with diuresis Time Spent With Patient Time: Total time spent is greater than 50% in coordination of care (as documented) at patient's floor/unit and/or counseling patient: Exam Const: General: comfortable, no acute distress and alert Resp: Effort & Inspection: normal respiratory effort Auscultation: no crackles, no rales and no rhonchi Cardio: Rate: regular rate Heart sounds: no click, no murmurs and no rubs GI: Inspection: non-distended Auscultation: normal bowel sounds Other: Incision - CDI Extrem: General: normal to inspection, no pedal edema and no calf tenderness
[2023-09-01] MEDS: LIDOCAINE 5% PATCH 1 PATCH TRANSDERM (21:23)
[2023-09-02] MEDS: IBUPROFEN 600 MG TABLET PO ×2 (04:17→10:12)
[2023-09-02] MEDS: ACETAMINOPHEN 325 MG TABLET 650 MG PO ×2 (04:17→10:12)
[2023-09-02 04:20] VITALS: BP 137/89; PULSE 71; RESP 16; TEMP 37
[2023-09-02 08:45] VITALS: BP 140/90; PULSE 77; RESP 16; TEMP 36.4; O2SAT 98
[2023-09-02 08:46] VITALS: PULSE 77
[2023-09-02] MEDS: LABETALOL HCL 100 MG TABLET 200 MG PO (08:46)
[2023-09-02] MEDS: SIMETHICONE 80 MG TAB.CHEW PO (08:46)
[2023-09-02] MEDS: MULTIVIT/MIN/PREN/FOL AC/IRON TABLET 1 TAB PO (08:46)
[2023-09-02] MEDS: POLYSACCHARIDE IRON COMPLEX 150 MG CAPSULE PO (08:46)
[2023-09-02] MEDS: DOCUSATE SODIUM 100 MG CAPSULE PO (08:46)
--- NOTE | 2023-09-02 09:43 | PC.NURSE ---
Patient viewed the discharge video Mother & Baby Care, The First Two Weeks . Patient was given the opportunity and encouraged to ask questions. Patient verbalized understanding of information shared and has been given the mother/baby guide for home reference.
--- NOTE | 2023-09-02 11:10 | PC.NURSE ---
[id number] Consulted with mother concerning needs and she shared her ability to independently latch infant optimally without pain. Infant is swaddled resting in mother's arms after bottle feeding at 0900. Mother is feeding appropriately for growth of infant and understands stimulating infant to eat if needed. Mother states she has attempted to latch infant to the breast, parents have visualized swallowing, and mother doesn't state that there's pain with latching. LANNY CROW met the dyad on Saturday and was sleepy and reluctant at less than 6 hours old. There has not been a latch visualized by LANNY CROW. Over the weekend mother has pumped with her personal pump, fed EBM with a bottle, supplemented with a formula bottle, used a nipple shield, and states has occasionally breastfed. Mother shared that she wants to exclusively breastfeed, however; wants to prepare to go back to work with pumping and letting father of baby help with bottle feeding too. We discussed in length the risk and benefits of the many options, what has been practiced so far, and mother shared some feedings are better than others. Questions were answered that were asked by the parents along with caution of going long periods of time with no effective or pumping and how that may reduce the milk supply. We reviewed practicing to get more familiar with deep latching. Parents are confident that they have seen and heard swallowing at the breast. Also reviewed feeding the infant and protecting the milk supply along with preventing an oversupply. Mother exclusively pumped to feed with her first child, had oversupply, and didn't want to do that again. has been supplemented this visit related to low blood sugars per Dr's orders. The late infant has had appropriate feedings in the last 24 hours meets the outcomes for weight, output, blood sugar and jaundice at this time. Reinforced understanding of milk production, transition of milk, signs of adequate intake, transition of stool, prevention/relief of engorgement, plugged ducts, mastitis, responsive watching for feeding cues, the different methods of stimulating infant to breastfeed 1-3 hours after the start of the last feeding, community resources, mother's resources through her work, and when to call a provider using the resource of the feeding sheet along with the mom and baby guide. Mother voiced understanding of the information shared, is confident to continue feeding her at home, when to call for assistance, denies any additional assistance or education at this time. Reported to the Primary RN.
--- NOTE | 2023-09-02 12:14 | PM.OBPNVD ---
OB - PN: Subj Subjective Date/time seen: 09/02/23 12:14 Patient comments: no complaints, pain well controlled, incisional pain, tolerating diet and flatus present OB - PN: Obj Data Labs 08/31/23 04:20 08/30/23 06:37 OB - PN A/P Plan day: 3 Plan: routine care, discharge home and other Comments: Incision check in one week. Given precautions. Preeclampsia stable. On labetalol 200 mg b.i.d. Time Spent With Patient Time: Total time spent is greater than 50% in coordination of care (as documented) at patient's floor/unit and/or counseling patient: Exam Const: General: comfortable, no acute distress and alert Resp: Effort & Inspection: normal respiratory effort Auscultation: no crackles, no rales and no rhonchi Cardio: Rate: regular rate Heart sounds: no click, no murmurs and no rubs GI: Inspection: non-distended GI Palp: No Tenderness to palpation present (GI) Auscultation: normal bowel sounds Other: Incision - CDI Extrem: General: normal to inspection, no pedal edema and no calf tenderness
--- NOTE | 2023-09-02 12:16 | PM.OBDSVD ---
DS: Admitting Diagnosis Discharge Date September 02, 2023 Admitting Diagnosis term , preeclampsia DS: Discharge Diagnosis Discharge Diagnosis (1) Previous delivery, delivered: Code(s): O34.219 - Maternal care for unspecified type scar from previous delivery Status: Acute (2) Preeclampsia, severe: Code(s): O14.10 - Severe pre-eclampsia, unspecified trimester Status: Acute OB - DS: Summary OB Procedures : None OB Procedures Intrapartum: OB Procedures: : None Peripartum Data Procedures: Procedures Operation Date: 08/30/23 07:30 Actual Procedure Side Surgeon p Section Mj Vargas MD Time Spent with Patient Time attestation: Total time spent providing and/or coordinating discharge services: DS: Data Data Completed and Pending Pending studies at discharge: Pending at discharge 08/30/23 08:15 Surgical [PTH] Routine Discharge Plan Discharge Attending physician on discharge: Mj Vargas Discharging Clinician: Mj Vargas Patient Disposition: Home, Self-Care Activity: pelvic rest Diet: regular Patient Instructions: Antibiotic Form Stand Alone Forms: General Discharge Information Follow-up/Referrals: Mj Vargas MD [Physician] - Discharge Medications: New oxycodone-acetaminophen 5-325 mg tablet 1 tablet PO Q4H PRN (Reason: pain) Qty: 25 0RF labetalol 100 mg Tablet 200 mg PO Q12HR Qty: 30 3RF Continued Vitamin Tablet 1 tablet PO DAILY ferrous sulfate 27 mg iron Tablet 27 mg PO DAILY aspirin 81 mg Capsule 81 mg PO DAILY Date of admission: 08/30/23 05:29 Primary Care Provider: Lata Hollis Admitting Provider: Mj Vargas Attending physician on admission: Mj Vargas Condition: Stable
[2023-09-03 10:23] VITALS: BP 136/85; PULSE 83; RESP 18; TEMP 37.1; O2SAT 100
== END 2023-09-02 13:45 | disposition home or self-care (01) | DRG 785 ==
LOC: ANHLDR 05:35 → ANHOB2 12:12
PROVIDERS: Admitting Provider Obstetrics & Gynecology; PCP Nurse Practitioner Family; Visit Provider Obstetrics & Gynecology
PROC: 10D00Z1 Extraction of Products of Conception, Low, Open Approach (ICD-10-PCS; CPT 59514; principal; 2023-08-30 07:30)
DX: O34.219 Maternal care for unspecified type scar from previous cesarean delivery (principal); Z30.2 Encounter for sterilization; O14.14 Severe pre-eclampsia complicating childbirth; O13.4 Gestational [pregnancy-induced] hypertension without significant proteinuria, complicating childbirth; Z3A.37 37 weeks gestation of pregnancy; Z37.0 Single live birth
CPT/HCPCS: 36415; 80053; 81001; 82570; 84156; 84550; 85025; 85461; 86592; 86850; 86880; 86900; 86901; 87086; 88302; 90384; 99199; A9270; J0690; J1885; J2274; J2405; J2590; J2790; J3475; J7120